=== PATIENT | female | born 1975 | race Caucasian/White ===

== ENCOUNTER 2016-10-14 19:15 | Emergency (ER) | payer MEDICARE, OTHER ==
--- NOTE | ~2016-10-14 | CR63 ---
[facility] A Service of [facility] RADIOLOGY TEXT RESULTS PATIENT: QAMAR HOOKER LOCATION: SED : [birth year] UNIT #: [id number] AGE: [address]: Jocelin Sandoval APRN SEX: F ORDER DR: [id number] [address] [address] [id number] E MR#: [id number] Acc #: [id number] NAME: QAMAR HOOKER : 1975 SEX: F STUDY DATE/TIME: 10/14/2016 19:20 UNIT: SED ROOM: STUDY DESCRIPTION: CR Chest 2 View Attending Physician: Jocelin Sandoval A.P.R.N. Ordering Physician: Jocelin Olson A.P.R.N. Primary Care Physician: Batsheva Zuniga M.D. MEDICAL IMAGING REPORT This report is preliminary unless electronic signature is present. EXAM Chest x-ray 10/14/2016 HISTORY Cough for the past week. COMPARISON 06/22/2016 TECHNIQUE 2 views of the chest were obtained. FINDINGS PA and lateral examination of the chest upright shows a good expansion of the parenchyma with a normal distribution of the pulmonary vascularity. There is no indication of congestion, effusion, infiltrate, tumor, or nodular density. The pleural reflections and diaphragmatic contours are normal. The cardiac silhouette and mediastinal anatomy is within normal limits. IMPRESSION Normal chest. Dictated by... Mahamed Suarez M.D. THIS IS AN ELECTRONICALLY VERIFIED REPORT Mahamed Suarez M.D. at 10/16/2016 11:02 AM GAIL/yasmani TD: 10/15/2016 11:19 JOB #: [id number] [facility] A Service [facility] RADIOLOGY TEXT RESULTS PATIENT: QAMAR HOOKER LOCATION: SED : [birth year] UNIT #: [id number] AGE: [address]: Jocelin Sandoval APRN SEX: F ORDER DR: MEDICAL IMAGING REPORT Page 1 of 1
[~2016-10-14 19:15] MED LIST: ABILIFY; ACETAMINOPHEN PO; ACETAMINOPHEN PR; ADDERALL20 M1 PO; ALBUTEROL 0.5ML INH; ALBUTEROL MININEB NEB; ALBUTEROL17 G1 IH; ALBUTEROL17 GM; ALBUTEROL17 GM INH; AMOXICILLIN PO; ANSAID100 MG PO; BACLOFEN10 MG PO; BENTYL20 M1 PO; CHANTIX; DELTASONE20 MG PO; DOXYCYCLINE PO; E-MYCIN250 MG PO; HYDROMET SYRUP480 ML PO; IBUPROFEN PO; IBUPROFEN600 MG PO; IBUPROFEN800 MG PO; IPRATROPIUM0.2 MG/ML NEB; KLONOPIN; KLONOPIN0.5 MG; KLONOPIN2 MG PO; MEDROL4 MG/DOSE- PO; MOTRIN600 M1 PO; NO MEDICATIONS; PREDNISONE PO; PRENATAL MULITV1 TAB PO; PROMETHAZINE D118 ML PO; PSEUDOEPHEDRINE30 M2 PO; ROBAXIN500 MG PO; SUDAFED PO; TYLENOL #3 PO; ULTRAM PO; VICODIN 5/1 TAB 5/50 PO; VOLTAREN50 MG PO; VOLTAREN75 MG PO; WAL-PROFEN200 M2 PO; ZITHROMAX PO; ZOLOFT
[2016-10-14 19:26] LABS: INFLUENZA A NEG (NEG); INFLUENZA B NEG (NEG)
== END 2016-10-14 20:31 | disposition home or self-care (01) ==
LOC: SED 19:15
PROVIDERS: Nurse Practitioner
DX: B34.9 Viral infection, unspecified (principal); J45.909 Unspecified asthma, uncomplicated; J44.9 Chronic obstructive pulmonary disease, unspecified; F17.210 Nicotine dependence, cigarettes, uncomplicated
CPT/HCPCS: 71020; 87804; 99283

== ENCOUNTER 2017-03-26 13:38 | Emergency (ER) | payer MEDICARE, OTHER ==
--- NOTE | ~2017-03-26 | CR63 ---
[facility]. [facility] A Service of [facility] & [facility] RADIOLOGY TEXT RESULTS PATIENT: QAMAR HOOKER LOCATION: SED : [birth year] UNIT #: [id number] AGE: [address]: ISAIAH BLEVINS SEX: F ORDER DR: [id number] [address] [address] [id number] E MR#: [id number] Acc #: [id number] NAME: QAMAR HOOKER : 1975 SEX: F STUDY DATE/TIME: 03/26/2017 15:12 UNIT: SED ROOM: STUDY DESCRIPTION: CR Chest 2 View Attending Physician: Isaiah Blevins R.N. Ordering Physician: Isaiah Blevins R.N. Primary Care Physician: Batsheva Zuniga M.D. MEDICAL IMAGING REPORT This report is preliminary unless electronic signature is present. EXAM Two-view chest 03/26/2017 INDICATIONS 41-year-old female with cough, wheezing, body aches, headache for 3 days. COPD and asthma. TECHNIQUE Two-view chest compared with 10/14/2016. FINDINGS Cardiac silhouette is within normal limits. The vascularity is unremarkable. Lungs are clear and hyperinflated. No effusion. No pneumothorax. IMPRESSION Pulmonary hyperinflation. Otherwise negative chest. Dictated by... Burak Lowe M.D. THIS IS AN ELECTRONICALLY VERIFIED REPORT Burak Lowe M.D. at 03/27/2017 6:38 AM Tri TD: 03/26/2017 19:14 JOB #: [id number] MEDICAL IMAGING REPORT Page 1 of 1
== END 2017-03-26 16:08 | disposition home or self-care (01) ==
LOC: SED 13:38
DX: J06.9 Acute upper respiratory infection, unspecified (principal); J30.2 Other seasonal allergic rhinitis; J44.9 Chronic obstructive pulmonary disease, unspecified; F17.210 Nicotine dependence, cigarettes, uncomplicated; Z88.2 Allergy status to sulfonamides; Z88.5 Allergy status to narcotic agent
CPT/HCPCS: 36415; 71020; 84703; 87651; 94640; 99284